=== PATIENT | male | born 1970 | race Caucasian/White ===

== ENCOUNTER 2018-10-04 16:48 | Emergency (ER) | payer SELFPAY ==
[~2018-10-04] VITALS: Ht 177.8 cm; Wt 79.0 kg
[2018-10-04 16:50] VITALS: BP 150/104
== END 2018-10-04 22:30 | disposition left against medical advice (07) ==
LOC: ER 19:11
DX: R42 Dizziness and giddiness (principal); R53.1 Weakness; R21 Rash and other nonspecific skin eruption; Z53.21 Procedure and treatment not carried out due to patient leaving prior to being seen by health care provider